=== PATIENT | female | born 1955 | race Caucasian/White ===

== ENCOUNTER 2024-05-03 04:18 | Day surgery (SDC) | payer OTHER ==
[2024-04-26 11:12] VITALS: BMI 32.5
[2024-05-03 10:20] VITALS: TEMP 98
[2024-05-03 10:21] VITALS: RESP 18
[2024-05-03 10:23] VITALS: BP 112/71; PULSE 78
[2024-05-03 10:46] LABS: BLOOD UREA NITROGEN 12.1 mg/dL (7-18); CALCIUM 9.1 mg/dL (8.5-10.1)
[2024-05-03 10:50] LABS: CREATININE 0.8 mg/dL (0.55-1.3)
== END 2024-05-03 10:37 | disposition home or self-care (01) ==
LOC: JASU-ENDO 04:18
PROVIDERS: ATTEND Internal Medicine Gastroenterology
PROC: 0DBH8ZX Excision of Cecum, Via Natural or Artificial Opening Endoscopic, Diagnostic (ICD-10-PCS; 2024-05-03)
PROC: 0DBK8ZX Excision of Ascending Colon, Via Natural or Artificial Opening Endoscopic, Diagnostic (ICD-10-PCS; principal; 2024-05-03 08:45)
DX: Z12.11 Encounter for screening for malignant neoplasm of colon (principal); D12.2 Benign neoplasm of ascending colon; D12.0 Benign neoplasm of cecum; K63.5 Polyp of colon; K64.8 Other hemorrhoids; I10 Essential (primary) hypertension
CPT/HCPCS: 36415; 80048; 88305-TC